=== PATIENT | female | born 1960 | race Caucasian/White ===

== ENCOUNTER 2017-06-27 06:29 | Day surgery (SDC) ==
[2017-06-27] MEDS ORDERED: LIDOCAINE 1% 20 ML MDV ID STA (07:11)
[2017-06-27] MEDS ORDERED: LIDOCAINE 1% 20 ML MDV ID ONE (07:28)
[2017-06-27] MEDS ORDERED: VERSED ONE (08:00)
[2017-06-27] MEDS ORDERED: LIDOCAINE HCL 2% LUER-JET ONE (08:00)
[2017-06-27] MEDS ORDERED: DIPRIVAN 20 ML VIAL IVP ONE (08:00)
[2017-06-27 09:26] VITALS: BP 125/84; TEMP 97.3
--- NOTE | 2017-06-27 14:28 | OP ---
PROCEDURE: EGD (ESOPHAGOGASTRODUODENOSCOPY) WITH UNGER DILATATION. ENDOSCOPIST: John PEREZ M.D. INDICATION: DYSPHAGIA INSTRUMENT: GIFH-190. MEDICATION: PER ANESTHESIA. PROCEDURE: The patient was positioned for endoscopy. The oropharynx was sprayed with Cetacaine spray and the endoscope was advanced through the bite block into the esophagus and from there advanced to the duodenum. The duodenum was normal. The pylorus is widely patent. The antrum was normal. Retroflex exam reveals a normal cardia. The Z-line was regular at 37 cm. The esophagus was normal throughout. Specifically, no evidence for stricturing or esophagitis. A [address] Unger was passed without difficulty. The patient tolerated the procedure well without immediate complication. PLAN: 1. Continue all of her current medications. 2. Repeat endoscopy as needed. CC: DR. KEISHA TURNER
--- NOTE | 2017-06-27 14:36 | OP ---
PROCEDURE: COLONOSCOPY TO THE CECUM. ENDOSCOPIST: John PEREZ M.D. INDICATION: HISTORY OF POLYPS. INSTRUMENT: [id number]. MEDICATION: PER ANESTHESIA. PROCEDURE: The patient was positioned for colonoscopy. The digital rectal exam was negative. The colonoscope was inserted through the anus and advanced to the cecum. The cecum was identified using the ileocecal valve and the appendiceal orifice as landmarks. The scope was slowly withdrawn through an adequately prepped colon. Scattered diverticula were noted in left colon. Retroflex exam revealed minimal hemorrhoids. The patient tolerated the procedure well without immediate complication. Withdrawal time 8 minutes and 30 seconds. PLAN: 1. Suggest repeat colonoscopy for surveillance in 5 years. CC: DR. KEISHA TURNER
== END 2017-06-27 09:25 | disposition home or self-care (01) ==
LOC: SURG 06:29
PROVIDERS: ATTEND Internal Medicine Gastroenterology
DX: Z09 Encounter for follow-up examination after completed treatment for conditions other than malignant neoplasm (principal); Z86.010 Personal history of colon polyps; K57.30 Diverticulosis of large intestine without perforation or abscess without bleeding; K64.9 Unspecified hemorrhoids; R13.10 Dysphagia, unspecified